=== PATIENT | male | born 1965 | race Caucasian/White ===

== ENCOUNTER 2017-06-20 06:05 | Emergency (ER) | payer OTHER ==
[2017-06-20 06:53] LABS: BASOPHIL % 0.5 % (0-2); PLATELET COUNT 199 x10^3mcL (130-400); RED CELL DISTRIBUTION WIDTH 12.4 % (11.5-14.5)
[2017-06-20 07:09] LABS: CALCIUM 8.9 mg/dL (8.5-10.1); CARBON DIOXIDE 29.1 mmol/L (21-32); CHLORIDE SERUM 104 mmol/L (98-107); GFR1 > 60 mL/min; GLUCOSE SERUM 167 mg/dL (74-106); POTASSIUM SERUM 4.3 mmol/L (3.5-5.1); SODIUM SERUM 141 mmol/L (136-145)
[2017-06-20 07:13] LABS: ALBUMIN 3.5 g/dL (3.4-5.0); ALKALINE PHOSPHATASE 105 U/L (46-116); ALT/SGPT 123 U/L (16-63); AST/SGOT 217 U/L (15-37); BILIRUBIN TOTAL 1.17 mg/dL (0.20-1.00); LIPASE 178 IU/L (73-393); TOTAL PROTEIN, SERUM 7.3 g/dL (6.4-8.2)
[2017-06-20 08:18] VITALS: BP 104/70
== END 2017-06-20 08:18 | disposition home or self-care (01) ==
LOC: ED 06:05
PROVIDERS: Specialist
DX: K80.20 Calculus of gallbladder without cholecystitis without obstruction (principal); K29.70 Gastritis, unspecified, without bleeding
CPT/HCPCS: 36415; J7030; Q0092

== ENCOUNTER 2017-08-19 08:41 | Inpatient (IN) | payer OTHER ==
[~2017-08-19] VITALS: Ht 175.3 cm; Wt 70.5 kg
--- NOTE | 2017-08-19 09:05 | NUR ---
AMBULATED TO RM 14 AND VOMITTED 200CC BILEOUS INTO THE SINK. STATES HAS BEEN N/V X 24 HRS. NO PRIOR MED HX X GASTOENTERITIS. PT STATES HE DRINKS- BUT NOT FOR A WEEK. PT STATES HE EATS SPICY FOOD AND THIS HAPPENS.
--- NOTE | 2017-08-19 09:53 | NUR ---
LABS CXS DRAWN. MEDICATED. BOLUS OF NS INFUSING VIA PIV IN LFA.VSS.
--- NOTE | 2017-08-19 10:22 | NUR ---
ULTRA SOUND OF GALLBLADDER IN PROGRESS. AWAIT URINE SAMPLE. STATES TORRADOL DI NOT HELP- MD AWARE.
[2017-08-19 10:32] LABS: BASOPHIL % 0.5 % (0-2); PLATELET COUNT 200 x10^3mcL (130-400); RED CELL DISTRIBUTION WIDTH 12.8 % (11.5-14.5)
[2017-08-19 10:42] LABS: ALKALINE PHOSPHATASE 132 U/L (46-116); ALT/SGPT 553 U/L (16-63); AST/SGOT 663 U/L (15-37); BILIRUBIN TOTAL 2.75 mg/dL (0.20-1.00); CALCIUM 9.8 mg/dL (8.5-10.1); CARBON DIOXIDE 24.5 mmol/L (21-32); CHLORIDE SERUM 101 mmol/L (98-107); GFR1 > 60 mL/min; GLUCOSE SERUM 200 mg/dL (74-106); SODIUM SERUM 139 mmol/L (136-145); TOTAL PROTEIN, SERUM 7.9 g/dL (6.4-8.2)
[2017-08-19 10:49] LABS: POTASSIUM SERUM 2.9 mmol/L (3.5-5.1)
[2017-08-19 11:44] LABS: LIPASE 35606 IU/L (73-393)
--- NOTE | 2017-08-19 11:47 | NUR ---
NO HOME MEDS
--- NOTE | 2017-08-19 12:43 | NUR ---
RECEIVED PT FROM ER. PT IS STABLE. VITAL SIGNS STABLE. STATED ABDOMINAL PAIN,8/10 BUT PT STATED HIS PAIN IS GETTING BETTER AND PT FEEL SLEEPY. GAVE PT COMFORTABLE POSITION. ORIENTED PT TO ROOM. SAFTEY PRECAUTIONS ON.OLIVER FROM ER IS CONNECTED WITH IV PUMP AND CONNECTED TO PT. ADMISSION NURSE CAME AT 1300 AND DOING ADMISSION ASSESSMENT.
--- NOTE | 2017-08-19 13:11 | NUR ---
RECEIVED PATIENT FROM ED VIA GUERNEY, PATIENT ALERT AND ORIENTED SPOUSE AT BEDSIDE, TELE # 12 SR, IV ACCESS TO LFA WNL, C/O PAIN TO ABD, WILL MEDICATE ORDERED, ORIENTED PATIENT TO ROOM AND SURROUNDINGS, BED IN LOW POSIITON, BED RAILS UP X 2, CALL LIGHT WITHIN REACH, WILL ENDORSE CARE TO PRIMARY NURSE ISABEL MAO
[2017-08-19 13:44] VITALS: BP 123/63
--- NOTE | 2017-08-19 13:45 | NUR ---
PT IS SLEEPING. DENIES PAIN THIS TIME. PT'S AT BEDSIDE.
[2017-08-19 13:56] VITALS: BP 123/63
[2017-08-19 14:41] VITALS: BP 119/72
[2017-08-19 14:41] LABS: microscopic required? NO
[2017-08-19 14:46] LABS: urine erythrocyte NEGATIVE (NEGATIVE)
[2017-08-19 14:59] LABS: AMPHETAMINE QUAL UR NONE DETECTED (NEG <=1000)
--- NOTE | 2017-08-19 15:00 | NUR ---
INFORMED ABOUT PT HR IS IN 40'S TO 50'S. PT DENIES CHEST PAIN. NO DIZZINESS NOTED.
[2017-08-19 15:03] LABS: T3 TOTAL 1.43 ng/mL
[2017-08-19 15:09] LABS: CHOLESTEROL/HDL RATIO 4.9; MAGNESIUM 2.3 mg/dL (1.8-2.4); PHOSPHOROUS 2.8 mg/dL (2.5-4.9)
[2017-08-19 15:16] LABS: FREE T4 1.53 ng/dL (0.76-1.46)
[2017-08-19 15:17] LABS: T4(THYROXINE) 13.6 ug/dL (4.7-13.3)
[2017-08-19 15:53] VITALS: BP 101/61
[2017-08-19 18:44] VITALS: BP 123/69
--- NOTE | 2017-08-19 18:58 | NUR ---
PT RESTING IN BED COMFORTABLY. DENIES PAIN THIS TIME. PT HAD FULL LIQUID DINNER.WILL GIVE REPORT TO NEXT SHIFT NURSE.
--- NOTE | 2017-08-19 20:00 | NUR ---
RECEIVED PT IN BED AWAKE ALERT AND ORIENTED. FAMILY AT THE BEDSIDE. NO C/O PAIN NOTED. RESPIRATIONS EVEN AND UNLABORED WITH NO ACUTE DISTRESS NOTED. IV INFUSING WELL WITH NO INFILTRATION NOTED. SEE CONSULTANT IN ERGONOMICS AND SAFETY FOR FURTHER DETAILS. INSTRUCTED PT TO USE CALL LIGHT IF NEEDS ASSISTANCE WITH ANYTHING. PT VERBALIZES AN UNDERSTANDING. CALL LIGHT WITHIN REACH. WILL CONTINUE TO MONITOR.
[2017-08-19 20:35] VITALS: BP 113/64
--- NOTE | 2017-08-20 01:00 | NUR ---
PT SLEEPING AT THIS TIME WITH NO DISTRESS NOTED. RESPIRATIONS EVEN AND UNLABORED. CALL LIGHT REMAINS IN REACH. WILL CONTINUE TO MONITOR.
--- NOTE | 2017-08-20 03:41 | NUR ---
NO CHANGES NOTED AT THIS TIME. WILL MONITOR.
[2017-08-20 05:28] VITALS: BP 115/71
--- NOTE | 2017-08-20 05:52 | NUR ---
PT CONTINUES TO REST IN BED AT THIS TIME WITH NO DISTRESS NOTED. IV INFUSING WELL. NO INFILTRATION NOTED. PT IS STABLE AT THIS TIME, WILL ENDORSE TO THE A.M SHIFT NURSE.
[2017-08-20 06:02] LABS: BASOPHIL % 0.3 % (0-2)
[2017-08-20 06:11] LABS: PLATELET COUNT 187 x10^3mcL (130-400); RED CELL DISTRIBUTION WIDTH 12.9 % (11.5-14.5)
[2017-08-20 06:34] LABS: ALKALINE PHOSPHATASE 99 U/L (46-116); ALT/SGPT 342 U/L (16-63); AST/SGOT 152 U/L (15-37); BILIRUBIN DIRECT 0.35 mg/dL (0.0-0.2); BILIRUBIN TOTAL 1.97 mg/dL (0.20-1.00); CALCIUM 8.3 mg/dL (8.5-10.1); CARBON DIOXIDE 24.8 mmol/L (21-32); CHLORIDE SERUM 105 mmol/L (98-107); CREATININE SERUM 0.7 mg/dL (0.7-1.3); GFR1 > 60 mL/min; GLUCOSE SERUM 124 mg/dL (74-106); MAGNESIUM 1.8 mg/dL (1.8-2.4); PHOSPHOROUS 3.1 mg/dL (2.5-4.9); SODIUM SERUM 138 mmol/L (136-145); TOTAL PROTEIN, SERUM 6.5 g/dL (6.4-8.2)
[2017-08-20 06:37] LABS: ALBUMIN 3.1 g/dL (3.4-5.0); AMYLASE 302 U/L (25-115)
[2017-08-20 06:38] LABS: LIPASE 1472 IU/L (73-393)
--- NOTE | 2017-08-20 07:00 | NUR ---
PT C/O PAIN 05/06 AND RECEIVED TORODAL IVP ORDERED. WILL ENDORSE TO THE A.M SHIFT NURSE.
--- NOTE | 2017-08-20 08:00 | NUR ---
RECEIVED PT IN BED. ASSESSED AND DOCUMENTED. DENIES PAIN THIS TIME. SAFTEY PRECAUTIONS ON. WILL MONITOR.
[2017-08-20 09:52] VITALS: BP 105/59
--- NOTE | 2017-08-20 10:55 | NUR ---
OR STAFF TOOK PT TO OR VIA [place]. EXPLAINED ABOUT [facility] AND ERCP IN [place] AND PT SIGNED FOR BOTH PROCEDURE. NOW PT GOING FOR [facility] ONLY PER OR STAFF. CHECK LIST DONE. VITAL SIGNS STABLE. ELIZABETH WIPE DONE. REPORT GIVEN TO OR STAFF. PT IS STABLE.
--- NOTE | 2017-08-20 15:15 | NUR ---
RECEIVED PT FROM OR AFTER [facility]. BAND-AID X5 TO ABDOMEN ,CDI. SCD'S APPLIED TO BLE. PT DENIES PAIN THIS TIME. VITAL SIGNS STABLE. AD=278/64, HR 65, TEMP 98, RESP=16 AND SPO2 98% IN RA. PAGED FOR TO INFORM PT IS BACK AND FOR POST OP ORDER. PT IS STABLE.
[2017-08-20 17:48] VITALS: BP 104/62
--- NOTE | 2017-08-20 19:00 | NUR ---
PT RESTING IN BED COMFORTABLY. VOIDED AFTER SURGERY. DENIES PAIN THIS TIME. NO DISTRESS NOTED. GAVE REPORT TO NEXT SHIFT NURSE.
--- NOTE | 2017-08-20 20:21 | NUR ---
Awake and verbally responsive. No resp.distress noted on room air. Some soreness to abd'l.incisions but denies need for pain med at this time. Ambulating. Using I.S..Will cont.to monitor. Call light within reach.
[2017-08-20 21:56] VITALS: BP 101/64
--- NOTE | 2017-08-21 04:12 | NUR ---
No significant change in condition noted. Pain controlled. Denies n/v. Cont.on IV flagyl. No bleeding noted on abd'l.incisions. Using I.S. while awake. (-)flatus/bm. Ambulating.
[2017-08-21 05:51] VITALS: BP 108/64
[2017-08-21 06:07] LABS: BASOPHIL % 0.2 % (0-2); PLATELET COUNT 166 x10^3mcL (130-400); RED CELL DISTRIBUTION WIDTH 12.7 % (11.5-14.5)
[2017-08-21 06:38] LABS: CALCIUM 8.1 mg/dL (8.5-10.1); CARBON DIOXIDE 29.5 mmol/L (21-32); CHLORIDE SERUM 104 mmol/L (98-107); CREATININE SERUM 0.8 mg/dL (0.7-1.3); GFR1 > 60 mL/min; GLUCOSE SERUM 103 mg/dL (74-106); SODIUM SERUM 140 mmol/L (136-145)
--- NOTE | 2017-08-21 07:21 | NUR ---
PATIENT IS LAYING DOWN IN BED, ALERT. SCDS ARE IN PLACE. PATIENT DENIES PAIN, NAUSEA AT THIS TIME. BOWEL SOUNDS ARE ACTIVE, PATIENT STATES PASSING GAS BUT NO BM. PATIENT IS ON ROOM AIR, NS TO LFA AT 50 ML/HR, SITE WNL. PATIENT HAS IS AT BEDSIDE. CALL LIGHT WITHIN REACH.
[2017-08-21] MEDS ORDERED: OSCD PO (09:34)
[2017-08-21] MEDS ORDERED: ONDANSETRON4 M3 PO (09:35)
[2017-08-21] MEDS ORDERED: MAGOX 400241.3 MG PO (09:36)
[2017-08-21] MEDS ORDERED: TOR10 PO (09:37)
[2017-08-21 09:51] VITALS: BP 102/59
--- NOTE | 2017-08-21 11:09 | NUR ---
PATIENT SITTING UP ON SIDE OF BED. DENIES SOB, PAIN AND NAUSEA AT THIS TIME. CALL LIGHT WITHIN REACH.
[2017-08-21 11:17] VITALS: BP 102/59
--- NOTE | 2017-08-21 12:00 | NUR ---
DR EASTON IN TO SEE PATIENT, CLARIFIED WITH DOCTOR ABOUT ANTIBIOTICS. DR EASTON STATED TO NOT GIVE 12 OR 2 PM IV MEDICATIONS, SHE WAS GOING TO DC THEM.
--- NOTE | 2017-08-21 12:16 | NUR ---
CALLED OR FOR DR MOROCHO, MODERATE DRAINAGE ON ALL FIVE BANDAGES, DOES THE DOCTOR WANT TO SEE THE PATIENT PRIOR TO DISCHARGE.
--- NOTE | 2017-08-21 12:17 | NUR ---
PAGED DR EASTON IN REGARDS TO SEP [address] MOROCHO AT CLINICAL SITE.
--- NOTE | 2017-08-21 12:20 | NUR ---
SPOKE WITH DR EASTON IN REGARDS TO APPT. DR EASTON STATED THAT THE PATIENT HAS APPT WITH DR LANDON ON 08/30 AND BAILEE ON 08/30.
--- NOTE | 2017-08-21 13:36 | NUR ---
PATIENT SITTING IN CHAIR, PATIENT GIVEN INSTRUCTIONS TO USE INCENTIVE SPRIOMETER. PATIENT RETURN DEMONSTRATION OF HOW TO USE INCENTIVE SPIROMEMTER RESULTING IN 1000. PATIENT GIVEN PAIN MEDICINE FOR PAIN OF 05/06. WILL FOLLOW UP EFFECTIVENESS. CALL LIGHT IS WITHIN REACH
--- NOTE | 2017-08-21 13:38 | NUR ---
RECIEVED RETURNED CALL FROM OR DOCTOR STATED OKAY TO CHANGE DRESSING PRIOR TO DISCHARGE AND TO INSTRUCT PATIENTS FAMILY OF CARE AND FOLLOW UP APPT.
--- NOTE | 2017-08-21 13:50 | NUR ---
CALLED DR BOCANEGRA, WILL COME TO FLOOR.
--- NOTE | 2017-08-21 14:06 | NUR ---
DR BOCANEGRA IN TO SEE PATIENT. DRESSING CHANGED. AWARE OF DRAINAGE. TO SEE PATIENT 08/30.
[2017-08-21 14:17] VITALS: BP 102/59
--- NOTE | 2017-08-21 14:59 | NUR ---
DR. EASTON PAGED REGARDING PATIENT RETURNING TO WORK
--- NOTE | 2017-08-21 14:59 | NUR ---
PATIENT AND PATIENTS GIVEN DISCHARGE PACKET. DISCHARGE INSTRUCTIONS REVIEWED, PATIENT AND PATIENTS FAMILY VERBALIZED UNDERSTANDING. PATIENTS IV REMOVED, CATHETER INTACT, SITE COVERED WITH GAUZE AND TAPE. TELE REMOVED AND RETURNED. PATIENT INSTRUCTED TO USE CALL LIGHT WHEN READY TO LEAVE. PATIENT STATED THAT PAIN MEDICATION ADEQUATELY CONTROLLED HIS PAIN.
--- NOTE | 2017-08-21 15:09 | NUR ---
DOCTOR JEMMA RETURNED PHONE CALL, DOCTOR STATED SHE WOULD REWRITE TIME OFF WORK REQUEST
--- NOTE | 2017-08-21 15:30 | NUR ---
PATIENTS STATED WANTED TO READ BEFORE SIGNING CHART PAPERWORK WHILE WAITING FOR DOCTOR TO DISCUSS OFF WORK NOTICE. DOCTOR EASTON IN TO SPEAK WITH PATIENT AND PATIENTS . PATIENT AND PATIENTS LEFT WITH CHARTING PAPERWORK AND DID NOT SIGN.
== END 2017-08-21 15:20 | disposition home or self-care (01) | DRG 853 ==
LOC: ED 08:41 → DU 11:27 → UNDODEPER 11:34 → DU 12:41
PROVIDERS: Emergency Medicine; Surgery; ADMIT Family Medicine
PROC: BF131ZZ Fluoroscopy of Gallbladder and Bile Ducts using Low Osmolar Contrast (ICD-10-PCS; 2017-08-20)
PROC: 0FT44ZZ Resection of Gallbladder, Percutaneous Endoscopic Approach (ICD-10-PCS; principal; 2017-08-20 10:30)
DX: A41.9 Sepsis, unspecified organism (principal); K85.10 Biliary acute pancreatitis without necrosis or infection; E87.2 Acidosis; K80.00 Calculus of gallbladder with acute cholecystitis without obstruction; E87.6 Hypokalemia; R73.03 Prediabetes; E78.2 Mixed hyperlipidemia; E78.1 Pure hyperglyceridemia; E80.6 Other disorders of bilirubin metabolism; Z68.23 Body mass index [BMI] 23.0-23.9, adult; E02 Subclinical iodine-deficiency hypothyroidism; Z53.29 Procedure and treatment not carried out because of patient's decision for other reasons; R74.0 Nonspecific elevation of levels of transaminase and lactic acid dehydrogenase [LDH]
CPT/HCPCS: 82962; 83880; 84439; 94150; C1758; C1887; G0480; J0330; J1885; J1956; J2175; J2250; J2270; J2405; J2704; J2710; J3010; J3480; J3490; J7030; J7120; Q0092; Q9967

== ENCOUNTER 2017-08-22 21:35 | Emergency (ER) | payer OTHER ==
[~2017-08-22 21:35] MED LIST: MAGOX 400241.3 MG PO; ONDANSETRON4 M3 PO; OSCD PO; TOR10 PO
[2017-08-22 23:10] LABS: BASOPHIL % 0.3 % (0-2); PLATELET COUNT 201 x10^3mcL (130-400); RED CELL DISTRIBUTION WIDTH 12.5 % (11.5-14.5)
[2017-08-22 23:23] LABS: CALCIUM 8.5 mg/dL (8.5-10.1); CARBON DIOXIDE 28.6 mmol/L (21-32); CHLORIDE SERUM 99 mmol/L (98-107); CREATININE SERUM 0.7 mg/dL (0.7-1.3); GFR1 > 60 mL/min; GLUCOSE SERUM 125 mg/dL (74-106); POTASSIUM SERUM 3.3 mmol/L (3.5-5.1); SODIUM SERUM 128 mmol/L (136-145)
[2017-08-22 23:27] LABS: ALKALINE PHOSPHATASE 75 U/L (46-116); ALT/SGPT 126 U/L (16-63); AMYLASE 48 U/L (25-115); AST/SGOT 29 U/L (15-37); BILIRUBIN TOTAL 1.12 mg/dL (0.20-1.00); LIPASE 150 IU/L (73-393)
[2017-08-22 23:28] LABS: ALBUMIN 2.8 g/dL (3.4-5.0)
[2017-08-23 01:00] VITALS: BP 125/76
== END 2017-08-23 00:50 | disposition home or self-care (01) ==
LOC: ED 21:35
PROVIDERS: Emergency Medicine
DX: K85.90 Acute pancreatitis without necrosis or infection, unspecified (principal); Z90.49 Acquired absence of other specified parts of digestive tract; Z87.19 Personal history of other diseases of the digestive system
CPT/HCPCS: 83880; J2270; J2405; J7030; Q9967